=== PATIENT | male | born 1960 | race Caucasian/White ===

== ENCOUNTER 2021-03-03 10:27 | Outpatient (CLI) | payer MEDICARE ==
--- NOTE | 2021-03-03 10:57 | XRAY Report ---
PROCEDURE: Hip w/Pelvis 2-3V RT INDICATIONS: RT HIP PAIN TECHNIQUE: AP pelvis with lateral view(s) of the right hip(s). COMPARISON: None. FINDINGS: Bones: There is prior internal fixation of right proximal femur with surgical hardware in place. No g ross hardware loosening or failure is seen. Severe right hip joint osteoarthritic changes are noted w ith suggestion of avascular necrosis involving weightbearing portion of femoral head. Extensive remod eling in right hip joint is also seen. No acute fracture or dislocation. Pelvic ring appears intact. No suspicious bony lesions. Soft tissues: The visualized bowel gas pattern is normal. No suspicious soft tissue calcifications. IMPRESSION: Asymmetric severe right hip joint osteoarthritis with suggestion of avascular necrosis of femoral hea d and extensive right hip remodeling. Prior internal fixation of right proximal femur without evidenc e of hardware complication. No acute fracture or dislocation. Reviewed by: Edward Jack MD on 03/03/2021 10:55 AM PST Approved by: Edward Jack MD on 03/03/2021 10:55 AM PST Station ID: [id number]
== END 2021-03-03 10:28 | disposition home or self-care (01) ==
LOC: DI.N 10:27
PROVIDERS: ATTEND Internal Medicine
DX: M16.11 Unilateral primary osteoarthritis, right hip (principal); R93.6 Abnormal findings on diagnostic imaging of limbs; Z96.698 Presence of other orthopedic joint implants

== ENCOUNTER 2023-05-01 13:52 | Outpatient (CLI) | payer OTHER, MEDICARE | END 2023-05-01 23:59 | disposition EMS.NT | LOC: EMS 13:52 | DX: R07.89 Other chest pain (principal); V49.9XXA Car occupant (driver) (passenger) injured in unspecified traffic accident, initial encounter; Y92.414 Local residential or business street as the place of occurrence of the external cause ==

== ENCOUNTER 2023-05-01 15:11 | Emergency (ER) | payer OTHER, MEDICARE ==
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
[2023-05-01 17:56] VITALS: BP 165/101; O2SAT 98
== END 2023-05-01 17:50 | disposition home or self-care (01) ==
LOC: ED 15:11
DX: S20.219A Contusion of unspecified front wall of thorax, initial encounter (principal); V89.2XXA Person injured in unspecified motor-vehicle accident, traffic, initial encounter; Y92.410 Unspecified street and highway as the place of occurrence of the external cause; I10 Essential (primary) hypertension; E78.00 Pure hypercholesterolemia, unspecified; Z79.899 Other long term (current) drug therapy; F17.200 Nicotine dependence, unspecified, uncomplicated
CPT/HCPCS: 99283